=== PATIENT | female | born 1985 | race Caucasian/White ===

== ENCOUNTER 2019-07-27 18:53 | Emergency (ER) | payer MEDICAID ==
[~2019-07-27] VITALS: Ht 152.4 cm; Wt 99.0 kg
[2019-07-27 19:00] VITALS: BP 152/88
[2019-07-27] MEDS ORDERED: LORazepam 1 MG tablet PO ONE (20:10)
--- NOTE | 2019-07-27 20:14 | NUR ---
PT UP OUT OF BED TO BATHROOM . DISCUSSED TTRANSPORTAION HOME PRIOR TO MEDICATING WITH [facility]. PT VERBALIZED SHE HAS TRANSPORTATION HOME AFTER DISCHARGE.
[2019-07-27] MEDS ORDERED: HYDR-3686 PO (20:42)
--- NOTE | 2019-07-27 20:52 | NUR ---
PT UPDATED POC . STATES SHE IS FEELING "MORE CALM" AWAITING DISCHARGE
== END 2019-07-27 21:22 | disposition home or self-care (01) ==
LOC: ER 18:54
DX: F41.0 Panic disorder [episodic paroxysmal anxiety] (principal); R07.89 Other chest pain
CPT/HCPCS: 93005; 99283

== ENCOUNTER 2021-03-06 18:03 | Emergency (ER) | payer MEDICAID ==
[~2021-03-06] VITALS: Ht 162.6 cm; Wt 78.6 kg
[2021-03-06 18:28] LABS: CLARITY,URINE CLEAR (Clear); COLOR,URINE YELLOW (Yellow); GLUCOSE, URINE NEGATIVE (Neg); KETONES,URINE >=80 mg/dl (Neg); LEUKOCYTE ESTERASE ,URINE NEGATIVE (Neg); NITRITES, URINE NEGATIVE (Neg); OCCULT BLOOD,URINE NEGATIVE (Neg); PH,URINE 5.5 (4.8-8.0); PROTEIN,URINE NEGATIVE (Neg); UROBILINOGEN,URINE 0.2 E.U/dL (0.2-1.0)
[2021-03-06 18:29] LABS: UA COLLECTION TYPE CLN CATCH MIDSTREAM
[2021-03-06 18:38] LABS: BASOPHILS % (AUTO) 0.4 % (0-1); EOSINOPHILS # (AUTO) 0.3 X10'3 (0-0.9); EOSINOPHILS % (AUTO) 2.8 % (0-6); HEMATOCRIT 37.1 % (35.0-45.0); HEMOGLOBIN 12.3 g/dl (12.0-16.0); LYMPHOCYTES # (AUTO) 4.3 X10'3 (1.1-4.8); LYMPHOCYTES % (AUTO) 41.4 % (21-51); MEAN CORPUSCULAR HEMOGLOBIN 30.6 PG (27.0-31.0); MEAN CORPUSCULAR HGB CONC 33.1 g/dL (33.0-36.5); MEAN CORPUSCULAR VOLUME 92.5 FL (78-98); MEAN PLATELET VOLUME 7.9 FL (7.4-10.4); MONOCYTES # (AUTO) 0.6 X10'3 (0-0.9); MONOCYTES % (AUTO) 5.5 % (2-12); NEUTROPHILS # (AUTO) 5.2 X10'3 (1.8-7.7); NEUTROPHILS % (AUTO) 49.9 % (42-75); PLATELET COUNT 404 X10'3 (140-440); RED BLOOD COUNT 4.01 X10'6 (4.20-5.60); RED CELL DISTRIBUTION WIDTH 13.9 % (11.5-14.5); WHITE BLOOD COUNT 10.3 X10'3 (4.5-11.0)
[2021-03-06 18:46] LABS: ALANINE AMINOTRANSFERASE 23 U/L (12-78); ALBUMIN 3.7 G/DL (3.4-5.0); ALBUMIN/GLOBULIN RATIO 1.1 (1.1-1.5); ALKALINE PHOSPHATASE 83 IU/L (46-116); ANION GAP 10 (8-16); ASPARTATE AMINO TRANSFERASE 14 U/L (10-37); BILIRUBIN,TOTAL 0.1 MG/DL (0.1-1.0); BLOOD UREA NITROGEN 8 MG/DL (7-18); BUN/CREATININE RATIO 11.4 (6.6-38.0); CALCIUM 8.8 MG/DL (8.5-10.1); CHLORIDE 103 MMOL/L (99-107); GLUCOSE 90 MG/DL (70-104); LIPASE 106 U/L (73-393); POTASSIUM 3.8 MMOL/L (3.5-5.1); SODIUM 136 MMOL/L (135-145); TOTAL CARBON DIOXIDE 23.3 MMOL/L (24-32); TOTAL PROTEIN 7.2 G/DL (6.4-8.2); eGFR > 90 ML/MIN
[2021-03-06 19:45] LABS: URINE HCG NEGATIVE (NEG)
[2021-03-06 22:09] VITALS: BP 120/74
== END 2021-03-06 22:00 | disposition home or self-care (01) ==
LOC: ER 18:03
DX: R10.31 Right lower quadrant pain (principal); R19.7 Diarrhea, unspecified; F41.9 Anxiety disorder, unspecified; Z98.51 Tubal ligation status; Z90.49 Acquired absence of other specified parts of digestive tract; Z88.8 Allergy status to other drugs, medicaments and biological substances
CPT/HCPCS: 36415; 74176; 80053; 81003; 81025; 83690; 85025; 99284

== ENCOUNTER 2021-08-07 20:14 | Emergency (ER) | payer MEDICAID ==
[~2021-08-07] VITALS: Ht 162.6 cm; Wt 76.8 kg
--- NOTE | 2021-08-07 20:59 | NUR ---
PATIENT SEEN AND EVALUATED BY PA IN TRIAGE. CLEAN CATCH URINE OBTAINED AND SENT FOR LABS. PATIENT IN WAITING ROOM FOR NOW.
[2021-08-07] MEDS ORDERED: ketorolac tromethamine 15mg/ml inj. IM ONE (21:05)
[2021-08-07 21:35] LABS: BASOPHILS % (AUTO) 0.4 % (0-1); EOSINOPHILS # (AUTO) 0.3 X10'3 (0-0.9); EOSINOPHILS % (AUTO) 2.5 % (0-6); HEMATOCRIT 39.5 % (35.0-45.0); LYMPHOCYTES # (AUTO) 3.4 X10'3 (1.1-4.8); LYMPHOCYTES % (AUTO) 29.7 % (21-51); MEAN CORPUSCULAR HEMOGLOBIN 30.3 PG (27.0-31.0); MEAN CORPUSCULAR HGB CONC 32.8 g/dL (33.0-36.5); MEAN CORPUSCULAR VOLUME 92.5 FL (78-98); MEAN PLATELET VOLUME 7.7 FL (7.4-10.4); MONOCYTES # (AUTO) 0.8 X10'3 (0-0.9); MONOCYTES % (AUTO) 7.2 % (2-12); NEUTROPHILS % (AUTO) 60.2 % (42-75); PLATELET COUNT 406 X10'3 (140-440); RED BLOOD COUNT 4.27 X10'6 (4.20-5.60); RED CELL DISTRIBUTION WIDTH 13.8 % (11.5-14.5); WHITE BLOOD COUNT 11.6 X10'3 (4.5-11.0)
[2021-08-07 21:51] LABS: ALANINE AMINOTRANSFERASE 19 U/L (12-78); ALBUMIN 3.8 G/DL (3.4-5.0); ALKALINE PHOSPHATASE 90 IU/L (46-116); ANION GAP 11 (8-16); ASPARTATE AMINO TRANSFERASE 17 U/L (10-37); BILIRUBIN,TOTAL 0.1 MG/DL (0.1-1.0); BLOOD UREA NITROGEN 12 MG/DL (7-18); BUN/CREATININE RATIO 11.5 (6.6-38.0); CALCIUM 8.7 MG/DL (8.5-10.1); CHLORIDE 108 MMOL/L (99-107); CREATININE 1.04 MG/DL (0.40-0.90); GLUCOSE 100 MG/DL (70-104); POTASSIUM 4.2 MMOL/L (3.5-5.1); SODIUM 145 MMOL/L (135-145); TOTAL PROTEIN 7.8 G/DL (6.4-8.2); eGFR 60 ML/MIN
[2021-08-07 22:02] LABS: CLARITY,URINE CLEAR (Clear); COLOR,URINE YELLOW (Yellow); GLUCOSE, URINE NEGATIVE (Neg); KETONES,URINE NEGATIVE (Neg); LEUKOCYTE ESTERASE ,URINE NEGATIVE (Neg); NITRITES, URINE NEGATIVE (Neg); OCCULT BLOOD,URINE NEGATIVE (Neg); PROTEIN,URINE NEGATIVE (Neg); UA COLLECTION TYPE CLN CATCH MIDSTREAM; UROBILINOGEN,URINE 0.2 E.U/dL (0.2-1.0)
--- NOTE | 2021-08-07 22:10 | NUR ---
ULTRASOUND AT BEDSIDE
[2021-08-07 22:27] VITALS: BP 116/72
[2021-08-07] MEDS ORDERED: ONDA4TAB6 PO (22:31)
[2021-08-08] MEDS ORDERED: HYDR-3972 PO (15:43)
== END 2021-08-07 22:48 | disposition home or self-care (01) ==
LOC: ER 20:15
DX: R10.31 Right lower quadrant pain (principal); N83.201 Unspecified ovarian cyst, right side; R51.9 Headache, unspecified; R11.2 Nausea with vomiting, unspecified; F41.9 Anxiety disorder, unspecified; Z90.49 Acquired absence of other specified parts of digestive tract; Z98.51 Tubal ligation status; Z88.8 Allergy status to other drugs, medicaments and biological substances
CPT/HCPCS: 36415; 76856; 80053; 81003; 85025; 96372; 99284; J1885

== ENCOUNTER 2021-08-08 11:20 | Emergency (ER) | payer MEDICAID ==
[~2021-08-08] VITALS: Ht 162.6 cm; Wt 81.8 kg
[~2021-08-08 11:20] MED LIST: ONDA4TAB6 PO
[2021-08-08] MEDS ORDERED: ketorolac tromethamine 15mg/ml inj. IM ONE (14:20)
[2021-08-08] MEDS ORDERED: morphine 4 MG/ML inj SYRINge IM ONE (14:20)
[2021-08-08] MEDS ORDERED: HYDROcodone/acetaminophen 10/325mg tab PO ONE (14:20)
[2021-08-08] MEDS ORDERED: ondansetron 4mg rapidly disintigrating tab PO ONE (14:20)
[2021-08-08 15:40] VITALS: BP 116/79
[2021-08-08] MEDS ORDERED: HYDR-3972 PO (15:43)
== END 2021-08-08 16:00 | disposition home or self-care (01) ==
LOC: ER 11:21
DX: K40.20 Bilateral inguinal hernia, without obstruction or gangrene, not specified as recurrent (principal); R10.31 Right lower quadrant pain; R11.2 Nausea with vomiting, unspecified; F41.9 Anxiety disorder, unspecified; Z90.49 Acquired absence of other specified parts of digestive tract; Z98.51 Tubal ligation status; Z88.8 Allergy status to other drugs, medicaments and biological substances; Z79.899 Other long term (current) drug therapy
CPT/HCPCS: 74176; 96372; 99284; J1885; J2270